=== PATIENT | male | born 2000 | race Caucasian/White ===

== ENCOUNTER 2020-06-27 17:40 | Emergency (ER) | payer OTHER ==
[~2020-06-27] VITALS: Ht 172.7 cm; Wt 89.9 kg
[2020-06-27 17:56] VITALS: BP 125/57
[2020-06-27] MEDS ORDERED: IBUPROFEN 600 MG TABLET. PO ONE (18:45)
[2020-06-27] MEDS ORDERED: ACETAMINOPHEN 500 MG TABLET PO ONE (18:45)
--- NOTE | 2020-06-27 18:46 | PHYS DOC ---
Past History Past Medical History: No Pertinent History Past Surgical History: Other Additional Past Surgical Histo: wisdom teeth Alcohol Use: None Adult General Chief Complaint Chief Complaint: BACK PAIN - NO INJURY HPI HPI Patient is an otherwise healthy 20-year-old male, in the who presents with left-sided low back pain. 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 States after kicking it he felt a twinge in his left butt cheek. States it went away pretty quick. States that over the last day or 2 he has had some dull achy pain in the area, 5 out of 10 with no radiation. Denies any numbness/weakness/tingling. States he is able to walk without issue. Denies any urinary retention or incontinence. States he was told to come in by his superiors. States he has not taken any medications for this. Review of Systems Review of Systems Review of systems otherwise unremarkable except noted in HPI peer Allergies Allergies Allergies Coded Allergies Type Severity Reaction Last Updated Verified No Known Drug Allergies 06/27/20 No Physical Exam Physical Exam Constitutional: Well developed, well nourished, no acute distress, non-toxic appearance. [] Neck: Normal range of motion, no tenderness, Cardiovascular:Heart rate regular rhythm, no murmur [] Abdomen: soft, no tenderness, no masses, no pulsatile masses. [] Skin: Warm, dry, no erythema, no rash. [] Back: Patient has mild tenderness to palpation at the upper left middle buttock. No spinal vertebrae tenderness, step-offs or deformity. Range of motion normal. Extremities: No tenderness, no cyanosis, no clubbing, ROM intact, no edema. [] Neurologic: Alert and oriented X 3, normal motor function, normal sensory function, no focal deficits noted. [] Psychologic: Affect normal, judgement normal, mood normal. [] Current Patient Data Vital Signs Vital Signs Date Time Temp Pulse Resp B/P (MAP) Pulse Ox O2 Delivery O2 Flow Rate FiO2 06/27/20 17:56 98.4 76 18 125/57 (79) 96 EKG EKG [] Radiology/Procedures Radiology/Procedures [] Heart Score Risk Factors: Risk Factors: DM, Current or recent (<one month) smoker, HTN, HLP, family history of CAD, obesity. Risk Scores: Risk Factors: DM, Current or recent (<one month) smoker, HTN, HLP, family history of CAD, obesity. Course & Med Decision Making Course & Med Decision Making Patient is a 20-year-old male who presents with low back pain Vital signs not concerning. Physical exam noted above. Given Tylenol and ibuprofen. Exam suggestive of muscle strain. Discussed all findings with patient and advised on pain management at home. Gave strict return precautions. Advised to follow-up first thing Monday morning with his primary care physician to discuss his ED visit and return to the ED with new or concerning symptoms. Patient grateful, verbalized understanding and agreed with plan of discharge. [] Dragon Disclaimer Dragon Disclaimer This electronic medical record was generated, in whole or in part, using a voice recognition dictation system. Departure Departure: Impression: Primary Impression: Low back pain Disposition: 01 DC HOME SELF CARE/HOMELESS Condition: GOOD Referrals: NON,STAFF (PCP) Patient Instructions: Back Injury Prevention, Back Pain, Adult Additional Instructions: Please read all the attached information. Please use Tylenol, ibuprofen, ice/heat and Lidoderm patches as needed for pain control. All these are [id number]. Please call your primary care physician first thing Monday to discuss your ED visit. As discussed please refrain from any and all strenuous activity/exercising/lifting until cleared by your primary care physician. HEMANT GALLEGO MD Jun 27, 2020 18:46
== END 2020-06-27 19:02 | disposition home or self-care (01) ==
LOC: ER 17:40
DX: M54.5 Low back pain (principal)
CPT/HCPCS: 99283

== ENCOUNTER 2020-07-20 21:12 | Emergency (ER) | payer OTHER ==
[~2020-07-20] VITALS: Ht 172.7 cm; Wt 89.9 kg
[2020-07-20 21:16] VITALS: BP 114/91
--- NOTE | 2020-07-20 21:26 | PHYS DOC ---
Past History Past Medical History: No Pertinent History (DEREK DAVIES APRN) Past Surgical History: Other Additional Past Surgical Histo: wisdom teeth (DEREK DAVIES APRN) Alcohol Use: None (DEREK DAVIES APRN) General Adult EDM: Chief Complaint: KNEE INJURY HPI: HPI: Patient is a 20-year-old male who presents with bilateral knee pain. Patient states that he has had chronic knee pain for the last year. Patient states that this weekend it is hurt more than it ever has. "I was in the kitchen cooking and when I turned around I felt like my left knee shattered, and almost took me to the ground". Patient states he has had MRIs done in the past and also physical therapy. "They told me the only things wrong as my depression makes my knees hurt". Patient denies taking anything for pain today. (DEREK DAVIES APRN) Review of Systems: Review of Systems: Constitutional: Denies fever or chills Eyes: Denies change in visual acuity HENT: Denies nasal congestion or sore throat Respiratory: Denies cough or shortness of breath Cardiovascular: Denies chest pain or edema GI: Denies abdominal pain, nausea, vomiting, bloody stools or diarrhea : Denies dysuria Musculoskeletal: Reports back pain and bilateral knee pain Integument: Denies rash Neurologic: Denies headache, focal weakness or sensory changes Endocrine: Denies polyuria or polydipsia Lymphatic: Denies swollen glands Psychiatric: Denies depression or anxiety (DEREK DAVIES APRN) Allergies: Allergies: Allergies Coded Allergies Type Severity Reaction Last Updated Verified No Known Drug Allergies 06/27/20 No (DEREK DAVIES APRN) Physical Exam: PE: Constitutional: Well developed, well nourished, no acute distress, non-toxic appearance. [] HENT: Normocephalic, atraumatic, bilateral external ears normal, oropharynx moist, no oral exudates, nose normal. [] Eyes: PERRLA, EOMI, conjunctiva normal, no discharge. [] Neck: Normal range of motion, no tenderness, supple, no stridor. [] Cardiovascular:Heart rate regular rhythm, no murmur [] Lungs & Thorax: Bilateral breath sounds clear to auscultation [] Abdomen: Bowel sounds normal, soft, no tenderness, no masses, no pulsatile masses. [] Skin: Warm, dry, no erythema, no rash. [] Back: No tenderness, no CVA tenderness. [] Extremities: Bilateral knee tenderness, no cyanosis, no clubbing, ROM intact, no edema. [] Neurologic: Alert and oriented X 3, normal motor function, normal sensory function, no focal deficits noted. [] Psychologic: Affect normal, judgement normal, mood normal. [] (DEREK DAVIES APRN) EKG: EKG: [] (DEREK DAVIES APRN) Radiology/Procedures: Radiology/Procedures: [] (DEREK DAVIES APRN) Radiology/Procedures: Exam: Left knee 4 views INDICATION: Fall TECHNIQUE: Frontal, lateral, oblique and sunrise views of the left knee Comparisons: None FINDINGS: Bone mineralization is normal. No acute or healed fractures. Soft tissues are unremarkable. Joint spaces are well-maintained. IMPRESSION: No acute osseous abnormality. (MANUEL REYNA MD) Heart Score: Risk Factors: Risk Factors: DM, Current or recent (<one month) smoker, HTN, HLP, family history of CAD, obesity. Risk Scores: Score 0 - 3: 2.5% MACE over next 6 weeks - Discharge Home Score 4 - 6: 20.3% MACE over next 6 weeks - Admit for Clinical Observation Score 7 - 10: 72.7% MACE over next 6 weeks - Early Invasive Strategies (DEREK DAVIES APRN) Course & Med Decision Making: Course & Med Decision Making Pertinent Labs and Imaging studies reviewed. (See chart for details) []Patient is a 20-year-old male who presents with bilateral knee pain. Patient states that he has had chronic knee pain for the last year. Patient states "this weekend it is hurt more than it ever has". "I was in the kitchen cooking and when I turned around I felt like my left knee shattered, and almost took me to the ground". Patient states he has had MRIs done in the past and also physical therapy. "They told me that the depression makes my knees hurt". Patient denies taking anything for pain today. X-ray of left knee ordered. Toradol given for pain. Transfer of patient care to Dr. Reyna (DEREK DAVIES APRN) Course & Med Decision Making Patient states he had an orthopedics appointment that he missed because of snow couple weeks ago. Has not been follow-up advised patient to make follow-up appointment and to rest knee. (MANUEL REYNA MD) Dragon Disclaimer: Dragpati Disclaimer: This electronic medical record was generated, in whole or in part, using a voice recognition dictation system. (DEREK DAVIES APRN) Departure Departure: Impression: Primary Impression: Knee pain, bilateral Qualified Codes: M25.561 - Pain in right knee; M25.562 - Pain in left knee; G89.29 - Other chronic pain Disposition: 01 DC HOME SELF CARE/HOMELESS Condition: STABLE Referrals: PCP,UNKNOWN (PCP) Patient Instructions: Knee Pain, [id number] Additional Instructions: You were seen in the emergency room today for bilateral knee pain. Scripts Meloxicam (MELOXICAM) 15 Mg Tablet 1 TAB PO DAILY for pain for 14 Days, #14 TAB 0 Refills Prov: MANUEL REYNA MD 07/20/20 DEREK DAVIES APRN Jul 20, 2020 21:26 MANUEL REYNA MD Jul 20, 2020 22:15
[2020-07-20] MEDS ORDERED: KETOROLAC 60 MG/2 ML VIAL. IM ONE (21:45)
--- NOTE | 2020-07-20 22:03 | RAD ---
Exam: Left knee 4 views INDICATION: Fall TECHNIQUE: Frontal, lateral, oblique and sunrise views of the left knee Comparisons: None FINDINGS: Bone mineralization is normal. No acute or healed fractures. Soft tissues are unremarkable. Joint spa [place] are well-maintained. IMPRESSION: No acute osseous abnormality. Electronically signed by: Twyla Trimble MD (07/20/2020 10:00 PM) [facility]
[2020-07-20] MEDS ORDERED: MELO15TA23 PO (22:15)
== END 2020-07-20 22:35 | disposition home or self-care (01) ==
LOC: ER 21:12
DX: M25.562 Pain in left knee (principal); M25.561 Pain in right knee; G89.29 Other chronic pain
CPT/HCPCS: 73564; 96372; 99283; J1885

== ENCOUNTER 2020-08-11 21:17 | Emergency (ER) | payer OTHER ==
[~2020-08-11] VITALS: Ht 172.7 cm; Wt 89.9 kg
[~2020-08-11 21:17] MED LIST: MELO15TA23 PO
--- NOTE | 2020-08-11 21:22 | PHYS DOC ---
Past History Past Medical History: No Pertinent History Past Surgical History: Other Additional Past Surgical Histo: wisdom teeth Alcohol Use: None Adult General HPI HPI Patient is a 20-year-old male who presents with 3-4 episodes of loose stool/diarrhea today. States he thinks he may have just ate something that disagreed with him. States he is in the [employer] and really just wants to get out. Denies any recent travel, traumas, illnesses, fevers, sore throat, cough, chest pain, shortness of breath, abdominal pain, nausea, vomiting, dysuria, hematuria or blood in the stool. States he is still able to eat and drink normally. Review of Systems Review of Systems Review of systems otherwise unremarkable except noted in HPI Allergies Allergies Allergies Coded Allergies Type Severity Reaction Last Updated Verified No Known Drug Allergies 06/27/20 No Physical Exam Physical Exam Constitutional: Well developed, well nourished, no acute distress, non-toxic appearance. [] HENT: Normocephalic, atraumatic, bilateral external ears normal, oropharynx moist, no oral exudates, nose normal. [] Eyes: conjunctiva normal, no discharge. [] Neck: Normal range of motion, no tenderness, supple, no stridor. [] Cardiovascular:Heart rate regular rhythm, no murmur [] Lungs & Thorax: Bilateral breath sounds clear to auscultation [] Abdomen: Bowel sounds normal, soft, no tenderness, no masses, no pulsatile masses. [] Skin: Warm, dry, no erythema, no rash. [] Extremities: No tenderness, no cyanosis, no clubbing, ROM intact, no edema. [] Neurologic: Alert and oriented X 3, normal motor function, normal sensory function, no focal deficits noted. [] Psychologic: Affect normal, judgement normal, mood normal. [] EKG EKG [] Radiology/Procedures Radiology/Procedures [] Heart Score C/O Chest Pain: No Risk Factors: Risk Factors: DM, Current or recent (<one month) smoker, HTN, HLP, family history of CAD, obesity. Risk Scores: Risk Factors: DM, Current or recent (<one month) smoker, HTN, HLP, family history of CAD, obesity. Course & Med Decision Making Course & Med Decision Making Patient is an otherwise healthy 20-year-old male who presents with 3-4 bouts of soft stools/diarrhea today [] Vital signs not concerning. Physical exam noted above. Patient states he otherwise feels well but does one of the [employer] and requested a work note for tomorrow. Discussed differential for diarrhea. Gave Zofran to take home to allow the ability to maintain p.o. intake of fluids. Advised to call primary care physic john in the morning to update on ED visit. Gave strict return precautions to the ED. Patient grateful, verbalized understanding and agreed with plan of discharge. Dragon Disclaimer Dragon Disclaimer This electronic medical record was generated, in whole or in part, using a voice recognition dictation system. Departure Departure: Impression: Primary Impression: Diarrhea Disposition: 01 DC HOME SELF CARE/HOMELESS Condition: GOOD Referrals: PCP,UNKNOWN (PCP) Patient Instructions: Diarrhea, Diet for Diarrhea, Adult Additional Instructions: Please read all the attached information. Please take your nausea medicine as prescribed. Please be sure to drink plenty of fluids, especially electrolyte fluids such as Pedialyte and/or a Gatorade/water 50-50 mix to ensure that you are well-hydrated. Please do not take any medicines to stop your diarrhea but she can take things like Pepto-Bismol for stomach cramping. You can expect to have diarrhea for 24 to 48 hours that is why it is extremely important to stay well-hydrated and able to eat and drink appropriately. Over the next few days be sure to have a light diet with things such as saltine crackers, dry bread and chicken soup and others as discussed. Please call your primary care physician first thing in the morning to discuss your ED visit and set up a follow-up as needed. Please come back to the ED with new or concerning symptoms. Scripts Ondansetron Hcl (ZOFRAN) 4 Mg Tablet 1 TAB PO TID PRN for NAUSEA for 3 Days, #9 TAB Prov: HEMNAT GALLEGO MD 08/11/20 HEMANT GALLEGO MD Aug 11, 2020 21:22
[2020-08-11 21:29] VITALS: BP 122/68
[2020-08-11] MEDS ORDERED: ONDA4TAB7 PO (21:34)
[2020-08-11] MEDS ORDERED: ONDANSETRON ODT 4 MG TAB.RAPDIS PO ONE (21:45)
== END 2020-08-11 21:40 | disposition home or self-care (01) ==
LOC: ER 21:17
DX: R19.7 Diarrhea, unspecified (principal)
CPT/HCPCS: 99283; Q0162

== ENCOUNTER 2020-11-23 19:17 | Emergency (ER) | payer OTHER ==
[~2020-11-23] VITALS: Ht 172.7 cm; Wt 89.9 kg
[~2020-11-23 19:17] MED LIST changes: +ONDA4TAB7 PO
[2020-11-23 19:34] VITALS: BP 119/70
--- NOTE | 2020-11-23 20:18 | RAD ---
CT LUMBAR SPINE WO, CT PELVIS WO History:Reason: fall, coccyx and lumbar pain / Spl. Instructions: / History: Technique: Noncontrast CT was performed of the lumbar spine and pelvis. Multiplanar reconstructions w ere performed. Exposure: One or more of the following individualized dose reduction techniques were utilized for thi s examination: 1. Automated exposure control 2. Adjustment of the mA and/or kV according to patient size 3. Use of iterative reconstruction technique. Comparison: None Findings: Lumbar spine CT: Normal vertebral body height and alignment. No fracture. Disc spaces are well-maintained. No significant canal or neuroforaminal narrowing. Pelvic CT: Normal alignment of the hips. No acute fracture. Intrapelvic contents are unremarkable. Impression: Lumbar spine CT: 1. No acute fracture or subluxation of the lumbar spine. Pelvis CT: 1. No acute osseous abnormality. Electronically signed by: Karel Guaadrrama DO (11/23/2020 8:15 PM) [facility]
--- NOTE | 2020-11-23 21:00 | PHYS DOC ---
Past History Past Medical History: No Pertinent History (LILLIE APONTE APRN) Past Surgical History: Other Additional Past Surgical Histo: wisdom teeth (LILLIE APONTE APRN) Additional Smoking Information: "I VAPE SOMETIMES" Alcohol Use: Rarely (LILLIE APONTE APRN) Adult General Chief Complaint Chief Complaint: MECHANICAL FALL HPI HPI Patient is a 20-year-old male presents emergency department with chief complaint of a slip and fall on wet steps in which he landed on his buttocks. Patient complains of tailbone pain, right hip pain, and low back pain. Patient denies urinary retention, denies loss of urine or bowel control. Patient denies any numbness in his buttocks area or groin area. Patient denies any other physical complaints or physical concerns. (LILLIE APONTE APRN) Review of Systems Review of Systems 14 body systems of review of systems have been reviewed. See HPI for pertinent positives and negative responses, otherwise all other systems are negative, nonpertinent or noncontributory. (LILLIE APONTE APRN) Allergies Allergies Allergies Coded Allergies Type Severity Reaction Last Updated Verified No Known Drug Allergies 06/27/20 No (LILLIE APONTE APRN) Physical Exam Physical Exam Constitutional: Well developed, well nourished, no acute distress, non-toxic appearance. 20-year-old male in no apparent distress. HENT: Normocephalic, atraumatic. Eyes: Conjunctiva normal, no drainage appreciated. Neck: Normal range of motion. Cardiovascular: No cyanosis appreciated, distal cap refill less than 2 seconds. Lungs & Thorax: No adventitious lung sounds appreciated audibly, patient is in no respiratory distress. Skin: Warm, dry, no erythema, no rash. Back: Tenderness to palpation along lower lumbar midline area, no CVA tenderness on the left or right, no other tenderness to the spine appreciated. Extremities: No tenderness, no cyanosis, no clubbing, ROM intact, no edema. Except for right hip, patient complains of pain to palpation along iliac crest area, no deformity or bruising appreciated, distal cap refill less than 2 seconds, no loss of sensation distally, full AROM/PROM of hip joint and adjacent joints. 2+ dorsalis pedis/posterior tibial pulse. Neurologic: Alert and oriented X 3, normal motor function, normal sensory fu nction, no focal deficits noted. Psychologic: Affect normal, judgement normal, mood normal. (LILLIE APONTE APRN) Current Patient Data Vital Signs Vital Signs Date Time Temp Pulse Resp B/P (MAP) Pulse Ox O2 Delivery O2 Flow Rate FiO2 11/23/20 19:34 97.5 96 18 119/70 (86) 99 Room Air (LILLIE APONTE APRN) EKG EKG [] (LILLIE APONTE APRN) Radiology/Procedures Radiology/Procedures PATIENT: TOSHIA CRISOSTOMO ACCOUNT: [id number] : 2000 LOCATION: ER AGE: 20 SEX: M EXAM STATUS: REG ER ORD. PHYSICIAN: LILLIE APONTE APRN REASON: fall, coccyx and lumbar pain PROCEDURE: CT LUMBAR SPINE WO CONTRAST ADDENDUM ADDENDUM #1 Addendum: No displaced coccyx fracture. Electronically signed by: Karel Guadarrama DO (11/23/2020 8:42 PM) [facility] ORIGINAL REPORT CT LUMBAR SPINE WO, CT PELVIS WO History:Reason: fall, coccyx and lumbar pain / Spl. Instructions: / History: Technique: Noncontrast CT was performed of the lumbar spine and pelvis. Multiplanar reconstructions were performed. Exposure: One or more of the following individualized dose reduction techniques were utilized for this examination: 1. Automated exposure control 2. Adjustment of the mA and/or kV according to patient size 3. Use of iterative reconstruction technique. Comparison: None Findings: Lumbar spine CT: Normal vertebral body height and alignment. No fracture. Disc spaces are well-maintained. No significant canal or neuroforaminal narrowing. Pelvic CT: Normal alignment of the hips. No acute fracture. Intrapelvic contents are unremarkable. Impression: Lumbar spine CT: 1. No acute fracture or subluxation of the lumbar spine. Pelvis CT: 1. No acute osseous abnormality. Electronically signed by: Karel Guadarrama DO (11/23/2020 8:15 PM) [facility] DICTATED AND SIGNED BY: KAREL GUADARRAMA DO DATE: 11/23/202037 CC: LILLIE APONTE APRN; EMERGENCY,DEPARTMENT; PCP,UNKNOWN ~ CT LUMBAR SPINE WO, CT PELVIS WO History:Reason: fall, coccyx and lumbar pain / Spl. Instructions: / History: Technique: Noncontrast CT was performed of the lumbar spine and pelvis. Multiplanar reconstructions were performed. Exposure: One or more of the following individualized dose reduction techniques were utilized for this examination: 1. Automated exposure control 2. Adjustment of the mA and/or kV according to patient size 3. Use of iterative reconstruction technique. Comparison: None Findings: Lumbar spine CT: Normal vertebral body height and alignment. No fracture. Disc spaces are well-maintained. No significant canal or neuroforaminal narrowing. Pelvic CT: Normal alignment of the hips. No acute fracture. Intrapelvic contents are unremarkable. Impression: Lumbar spine CT: 1. No acute fracture or subluxation of the lumbar spine. Pelvis CT: 1. No acute osseous abnormality. Electronically signed by: Karel Guadarrama DO (11/23/2020 8:15 PM) [facility] DICTATED AND SIGNED BY: KAREL GUADARRAMA DO DATE: 11/23/202008 CC: LILLIE APONTE APRN; EMERGENCY,DEPARTMENT; PCP,UNKNOWN ~MTH0 0 (LILLIE APONTE APRN) Heart Score C/O Chest Pain: No Risk Factors: Risk Factors: DM, Current or recent (<one month) smoker, HTN, HLP, family history of CAD, obesity. Risk Scores: Risk Factors: DM, Current or recent (<one month) smoker, HTN, HLP, family history of CAD, obesity. (LILLIE APONTE APRN) Course & Med Decision Making Course & Med Decision Making Pertinent Labs and Imaging studies reviewed. (See chart for details) 20-year-old male, vital signs reviewed, presents to the emergency department complaining of a slip and fall landing on his buttocks. Physical examination consistent with patient's description of events, will order CT lumbar spine, pelvis to rule out acute fracture. CT unremarkable for acute fracture lumbar spine, sacral or coccyx fracture, hips and pelvis intact. Discussed findings with patient, discussed ice packs to sore areas, discussed continual use of home pain medications that he uses for his chronic bilateral knee pains. Patient did ask for work excuse for tomorrow to be released from [employer] exercise. Patient gave verbal understanding discharge home instructions, follow-up with PCP soon, return to ER precautions or concerns, will give work excuse for tomorrow, patient had no further questions or concerns, patient was discharged home without incident. (LILLIE APONTE APRN) Course & Med Decision Making Did not see or evaluate patient. Agree with [employer]'s work-up and disposition per note. (HEMANT GALLEGO MD) Dragon Disclaimer Dragon Disclaimer This electronic medical record was generated, in whole or in part, using a voice recognition dictation system. (LILLIE APONTE APRN) Departure Departure: Impression: Primary Impression: Fall (on) (from) other stairs and steps, initial encounter Additional Impression: Multiple contusions Disposition: 01 HOME / SELF CARE / HOMELESS Condition: GOOD Referrals: PCP,UNKNOWN (PCP) Patient Instructions: Contusion, Fall Prevention and Home Safety, RICE - Routine Care for Injuries Additional Instructions: You are seen today in the emergency department for a slip and fall on steps. A CT of your lumbar spine and sacrum coccyx and hips and pelvis did not show any fracture of your bones. You do however have contusions to your buttocks and hip area, please continue to use the medications prescribed to you by your [facility] physicians. Please follow-up with your primary care physician soon for reexamination of your ongoing aches and pains. Please return to the emergency department for worsening symptoms or other concerns. Please use ice to your sore areas 30 min on 30 min off while awake for the next 48 to 72 h. EMERGENCY DEPARTMENT GENERAL DISCHARGE INSTRUCTIONS Thank you for coming to [facility] (ED) today and trusting us with you care. We trust that you had a positivie experience in our Emergency Department. If you wish to speak to the department management, you may call the director at [phone]. YOUR FOLLOW UP INSTRUCTIONS ARE FOLLOWS: 1. Do you have a private Doctor? If you do not have a private doctor, please ask for a resource list of physicians or clinics that may be able to assist you with follow up care. 2. The Emergency Physician has interpreted your x-rays. The X-Ray specialist will also review them. If there is a change in the findings, you will be notified in 48 hours when at all possible. 3. A lab test or culture has been done, your results will be reviewed and you will be notified if you need a change in treatment. ADDITIONAL INSTRUCTIONS AND INFORMATION: 1. Your care today has been supervised by a physician who is specially trained in emergency care. Many problems require more than one evaluation for a complete diagnosis and treatment. We recommend that you schedule your follow up appointment as recommended to ensure complete treatment of you illness or injury. If you are unable to obtain follow up care and continue to have a problem, or if your condition worsens, we recommend that you return to the ED. 2. We are not able to safely determine your condition over the phone nor are we able to give sound medical advice over the phone. For these safety reasons, if you call for medical advice we will ask you to come to the ED for further evaluation. 3. If you have any questions regarding these discharge instructions please call the ED at [phone]. SAFETY INFORMATION: In the interest of safety, wellness, and injury prevention; we encourage you to wear your sealbelt, if you smoke; quite smoking, and we encourage family to use a protective helmet for bicycling and other sporting events that present an increased risk for head injury. IF YOUR SYMPTOMS WORSEN OR NEW SYMPTOMS DEVELOP, OR YOU HAVE CONCERNS ABOUT YOUR CONDITION; OR IF YOUR CONDITION WORSENS WHILE YOU ARE WAITING FOR YOUR FOLLOW UP APPOINTMENT; EITHER CONTACT YOUR PRIMARY CARE DOCTOR, THE PHYSICIAN WHOSE NAME AND NUMBER YOU WERE GIVEN, OR RETURN TO THE ED IMMEDIATELY. Problem Qualifiers LILLIE APONTE APRN Nov 23, 2020 21:00 HEMANT GALLEGO MD Nov 23, 2020 22:54
== END 2020-11-23 21:11 | disposition home or self-care (01) ==
LOC: ER 19:17
DX: S30.0XXA Contusion of lower back and pelvis, initial encounter (principal); S70.01XA Contusion of right hip, initial encounter; M54.5 Low back pain; W10.8XXA Fall (on) (from) other stairs and steps, initial encounter; Y93.89 Activity, other specified; Y92.89 Other specified places as the place of occurrence of the external cause; Y99.8 Other external cause status
CPT/HCPCS: 72131; 72192; 99285-25

== ENCOUNTER 2020-12-08 21:10 | Emergency (ER) | payer OTHER ==
[~2020-12-08] VITALS: Ht 172.7 cm; Wt 91.0 kg
[2020-12-08 21:53] VITALS: BP 119/60
[2020-12-08] MEDS ORDERED: CLIN300C9 PO (22:06)
--- NOTE | 2020-12-08 22:07 | PHYS DOC ---
Past History Past Medical History: No Pertinent History Past Surgical History: Other Additional Past Surgical Histo: wisdom teeth Alcohol Use: None General Adult EDM: Chief Complaint: WOUND CHECK HPI: HPI: Patient is a [age] year old [sex] who presents with [] Review of Systems: Review of Systems: Constitutional: Denies fever or chills Eyes: Denies redness or eye pain HENT: Denies nasal congestion or sore throat Respiratory: Denies cough or shortness of breath Cardiovascular: Denies chest pain or palpitations GI: Denies abdominal pain, nausea, or vomiting : Denies dysuria or hematuria Musculoskeletal: Denies back pain or joint pain Integument: Denies rash or skin lesions Neurologic: Denies headache, focal weakness or sensory changes Complete systems were reviewed and found to be within normal limits, except as documented in this note. Allergies: Allergies: Allergies Coded Allergies Type Severity Reaction Last Updated Verified No Known Drug Allergies 06/27/20 No Physical Exam: PE: Constitutional: Well developed, well nourished, no acute distress, non-toxic appearance HENT: Normocephalic, atraumatic Eyes: PERRL, EOMI, conjunctiva normal, no discharge Neck: Normal range of motion, no tenderness, supple Lungs & Thorax: No respiratory distress, equal chest rise and fall Abdomen: Soft, no tenderness Skin: Warm, dry, no erythema, no rash Back: No tenderness, no CVA tenderness Extremities: No tenderness, ROM intact, no edema Neurologic: Alert and oriented X 3, normal motor function, normal sensory function, no focal deficits noted Psychologic: Affect normal, judgment normal Current Patient Data: Vital Signs: Vital Signs Date Time Temp Pulse Resp B/P (MAP) Pulse Ox O2 Delivery O2 Flow Rate FiO2 12/08/20 21:53 98.3 80 16 119/60 98 Room Air EKG: EKG: [] Radiology/Procedures: Radiology/Procedures: [] Heart Score: C/O Chest Pain: N/A Course & Med Decision Making: Course & Med Decision Making Patient stable for discharge with outpatient follow-up with PCP/general surgery. General surgery referral provided. Discussed findings and plan with patient, who acknowledges understanding and agreement. Jemma Disclaimer: Jemma Disclaimer: This electronic medical record was generated, in whole or in part, using a voice recognition dictation system. Departure Departure: Impression: Primary Impression: Pilonidal cyst with abscess Disposition: HOME / SELF CARE / HOMELESS Condition: STABLE Referrals: PCP,UNKNOWN (PCP) SOTO LEVY MD Patient Instructions: Pilonidal Cyst, Care After Additional Instructions: Please take new antibiotic as prescribed. Discontinue any previously prescribed antibiotic. Use over the counter Tylenol and/or Ibuprofen as needed for pain or discomfort. Do not soak your wound. You may shower. Clean wound daily with soap and water. Change dressing 2 times daily. Use over the counter antibiotic ointment with each dressing change. Scripts Clindamycin Hcl (CLINDAMYCIN HCL) 300 Mg Capsule 1 CAP PO TID for infection for 7 Days, #21 CAP Prov: LILLIE CAPUTO DO 12/08/20 LILLIE CAPUTO DO Dec 08, 2020 22:07
[2020-12-08] MEDS ORDERED: NEOMY/BACITR/POLYMYXIN OINT PACKET. TP ONE (22:15)
[2020-12-08] MEDS ORDERED: CLINDAMYCIN HCL 150 MG CAPSULE PO ONE (22:15)
== END 2020-12-08 22:18 | disposition home or self-care (01) ==
LOC: ER 21:10
DX: L05.01 Pilonidal cyst with abscess (principal)
CPT/HCPCS: 99283

== ENCOUNTER 2021-03-04 19:30 | Emergency (ER) | payer OTHER ==
[~2021-03-04] VITALS: Ht 172.7 cm; Wt 86.0 kg
[~2021-03-04 19:30] MED LIST changes: +CLIN-95 PO
[2021-03-04] MEDS: ONDANSETRON ODT 4 MG TAB.RAPDIS PO ONE (20:40)
[2021-03-04] MEDS: LIDO:MAALOX 1:1 20 ML SINGLE DOSE. PO ONE (20:40)
--- NOTE | 2021-03-04 20:58 | PHYS DOC ---
Past History Past Medical History: No Pertinent History (KENISHA GOMEZ) Past Surgical History: Other Additional Past Surgical Histo: wisdom teeth (KENISHA GOMEZ) Smoking: Cigarettes Alcohol Use: None Drug Use: None (KENISHA GOMEZ) General Adult EDM: Chief Complaint: NAUSEA/VOMITING/DIARRHEA HPI: HPI: Patient is a 20 year old male who presents with less than 12-hour history of nausea, vomiting and "bubble guts." Patient states he took a test this afternoon and vomited three times immediately after. Patient states he ate a sandwich prior to his exam, which had ham, chicken, mayonnaise, cheese, spinach that "tasted funny." He last drank water at 1600, which he did not vomit back up. Patient denies any nausea at this time, but states he still has abdominal discomfort without pain and fatigue. He reports he feels the urge to defecate, but is unable to at this time. He denies any straining. Patient has no other complaints at this time. (KENISHA GOMEZ) Review of Systems: Review of Systems: ROS negative except as mentioned in HPI. (KENISHA GOMEZ) Current Medications: Current Meds: Current Medications Medications (Trade) Dose Ordered Sig/Tanner Start Time Stop Time Status Last Admin Dose Admin Multi-Ingredient Mouthwash/Gargle (Gi Cocktail) 20 ml 1X ONCE 03/04/21 20:30 03/04/21 20:31 DC 03/04/21 20:40 20 ML Ondansetron HCl (Zofran Odt) 4 mg 1X ONCE 03/04/21 20:30 03/04/21 20:31 DC 03/04/21 20:40 4 MG (KENISHA GOMEZ) Allergies: Allergies: Allergies Coded Allergies Type Severity Reaction Last Updated Verified No Known Drug Allergies 06/27/20 No (KENISHA GOMEZ) Physical Exam: PE: Constitutional: Well developed, well nourished, no acute distress, non-toxic appearance. Cardiovascular:Heart rate regular rhythm, no murmur. Lungs & Thorax: Bilateral breath sounds clear to auscultation. Abdomen: Bowel sounds normal, soft, no tenderness, no masses, no pulsatile masses. Extremities: No tenderness, no cyanosis, no clubbing, ROM intact, no edema. Neurologic: Alert and oriented x3, normal motor function, normal sensory function, no focal deficits noted. (KENISHA GOMEZ) Current Patient Data: Vital Signs: Vital Signs Date Time Temp Pulse Resp B/P (MAP) Pulse Ox O2 Delivery O2 Flow Rate FiO2 03/04/21 20:19 98.1 67 18 104/59 (74) 98 Room Air (KENISHA GOMEZ) Heart Score: C/O Chest Pain: No (KENISHA GOMEZ) Course & Med Decision Making: Course & Med Decision Making Pertinent Labs and Imaging studies reviewed. (See chart for details) Patient states he is still able to hydrate and his vomiting has been limited to the one episode with three retches. He is nontoxic-appearing and is able to tolerate p.o. fluids and food here in the department. Blood work and imaging are deferred for all of these reasons. Patient understands that if his symptoms worsen or return, he may return to the department. (KENISHA GOMEZ) Dragon Disclaimer: Dragon Disclaimer: This electronic medical record was generated, in whole or in part, using a voice recognition dictation system. (KENISHA GOMEZ) Departure Departure: Impression: Primary Impression: Nausea & vomiting Qualified Codes: R11.2 - Nausea with vomiting, unspecified Disposition: 01 HOME / SELF CARE / HOMELESS Condition: STABLE Referrals: PCP,UNKNOWN (PCP) Patient Instructions: Nausea and Vomiting, [id number] Additional Instructions: At this time, you should stick to a bland diet that consists of foods like bananas, rice, applesauce, toast/crackers. You may return to a normal diet as tolerated. Please return to the emergency department if your symptoms return or worsen. Attending Signature Attending Signature I have participated in the care of this patient and I have reviewed and agree with all pertinent clinical information above including history, exam, and recommendations. (JOSÉ MIGUEL LYMAN MD) KENISHA GOMEZ Mar 04, 2021 20:58 JOSÉ MIGUEL LYMAN MD Mar 08, 2021 19:00
[2021-03-04 21:20] VITALS: BP 162/70
== END 2021-03-04 21:50 | disposition home or self-care (01) ==
LOC: ER 19:30
DX: R11.2 Nausea with vomiting, unspecified (principal); F17.210 Nicotine dependence, cigarettes, uncomplicated
CPT/HCPCS: 99283; Q0162

== ENCOUNTER 2021-05-10 21:09 | Emergency (ER) | payer OTHER ==
[~2021-05-10] VITALS: Ht 172.7 cm; Wt 86.4 kg
--- NOTE | 2021-05-10 21:18 | PHYS DOC ---
Past History Past Medical History: No Pertinent History Past Surgical History: Other Additional Past Surgical Histo: wisdom teeth Smoking: Cigarettes Alcohol Use: None Drug Use: None Adult General HPI HPI Patient is a 20-year-old male, otherwise healthy presents with left knee pain that is been going on about 2 years. 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 States that the pain is about 6 out of 10, dull and achy in nature with no radiation. States he is able to walk. States he did not take any medications for this today. States [place]. Denies any new traumas, illnesses, fevers. Review of Systems Review of Systems Review of systems otherwise unremarkable except noted in HPI Allergies Allergies Allergies Coded Allergies Type Severity Reaction Last Updated Verified No Known Drug Allergies 06/27/20 No Physical Exam Physical Exam Constitutional: Well developed, well nourished, no acute distress, non-toxic appearance. [] Skin: Warm, dry, no erythema, no rash. [] Back: No tenderness, Extremities: Mild generalized tenderness around the knee with no swelling, bruising or obvious deformities, neurovascular exam intact, patient able to walk without issue Neurologic: Alert and oriented X 3, normal motor function, normal sensory function, able to sit, stand and walk without issue, no focal deficits noted. [] Psychologic: Affect normal, judgement normal, mood normal. [] EKG EKG [] Radiology/Procedures Radiology/Procedures [] Heart Score C/O Chest Pain: No Risk Factors: Risk Factors: DM, Current or recent (<one month) smoker, HTN, HLP, family history of CAD, obesity. Risk Scores: Risk Factors: DM, Current or recent (<one month) smoker, HTN, HLP, family history of CAD, obesity. Course & Med Decision Making Course & Med Decision Making Patient is a otherwise healthy 20-year-old male who presents with knee pain Vital signs not concerning. Physical exam noted above. Given Tylenol, ibuprofen and ice pack Imaging with no acute osseous abnormalities. Discussed all findings with patient. Discussed symptom management at home. Advised to follow-up in the morning with primary care physician. Gave return precautions to the ED. Patient grateful, verbalized understanding and agree with plan of discharge. [] Dragon Disclaimer Dragon Disclaimer This electronic medical record was generated, in whole or in part, using a voice recognition dictation system. Departure Departure: Impression: Primary Impression: Knee pain Disposition: HOME / SELF CARE / HOMELESS Condition: GOOD Referrals: PCP,UNKNOWN (PCP) JAMIE EASLEY MD Patient Instructions: Knee Pain, RICE - Routine Care for Injuries Additional Instructions: For coming into the emergency department tonight and allowing us to take care of you. Please read the attached information carefully to go back over some of the things we discussed. You can use Tylenol, ibuprofen and ice as needed for pain control at home. He does report you follow-up with your primary care ph ysician in the morning to update on your ED visit and if you do not have your own primary care physician you can call the 1 at the number provided or [facility] or [facility]. Please come back with new or concerning symptoms as we discussed. HEMANT GALLEGO MD May 10, 2021 21:18
[2021-05-10 21:27] VITALS: BP 112/60
[2021-05-10] MEDS ORDERED: IBUPROFEN 600 MG TABLET. PO ONE (21:30)
[2021-05-10] MEDS ORDERED: ACETAMINOPHEN 500 MG TABLET PO ONE (21:30)
--- NOTE | 2021-05-10 22:36 | RAD ---
EXAM: AP, lateral and oblique views of the left knee DATE: 05/10/2021 9:46 PM INDICATION: Reason: chronic pain / Spl. Instructions: / History: COMPARISON: No Prior FINDINGS: No acute fracture or dislocation. No joint effusion. Joint spaces are preserved without significant degenerative/proliferative change. IMPRESSION: No acute fracture or dislocation. Electronically signed by: David Baldwin MD (05/10/2021 10:33 PM) FREDIS
== END 2021-05-10 22:14 | disposition home or self-care (01) ==
LOC: ER 21:09
DX: M25.562 Pain in left knee (principal); F17.210 Nicotine dependence, cigarettes, uncomplicated
CPT/HCPCS: 73562; 99283